=== PATIENT | male | born 1995 | race Caucasian/White ===

== ENCOUNTER 2017-04-06 00:26 | Emergency (ER) | payer BC ==
[~2017-04-06] VITALS: Ht 167.6 cm; Wt 64.1 kg
[2017-04-06 00:29] VITALS: TEMP 36.5; Ht 167.6 cm; Wt 64.1 kg
[2017-04-06] MEDS ORDERED: XYLOCAINE 1%/SOD BICARB 20 ML VIAL INFIL ONE (01:00)
[2017-04-06 01:20] VITALS: BP 95/65; PULSE 87; O2SAT 96
--- NOTE | 2017-04-06 06:09 | EMERGENCY ROOM VISIT NOTE ---
ED Visit Note First contact with patient: 00:36 CHIEF COMPLAINT: Right elbow laceration HISTORY OF PRESENT ILLNESS: This 22-year-old male patient presents to the emergency department after cutting the right elbow after falling tonight. Evidently the patient has been drinking alcohol, slipped, and cut himself on a piece of glass. The bleeding has stopped. Denies weakness or numbness of the hand or wrist. The patient rates the pain as dull and 1/10. The patient denies any other injuries. The patient's Tetanus shot is reportedly up to date. REVIEW OF SYSTEMS: A 6 system review of systems was completed with positives and pertinent negatives listed in the HPI. ALLERGIES: No known allergies MEDICATIONS: No chronic medications PMH: Otherwise healthy SOCIAL HISTORY: Drinks alcohol almost locally PHYSICAL EXAM: Vital Signs: Reviewed Nurse's notes, vital signs stable. GENERAL : White male, in no acute distress, well-developed, well-nourished. SKIN: There is a curvilinear 3.5 cm long laceration on the dorsal aspect of the right elbow just lateral to the olecranon. The edges gape apart with traction. There is no foreign material in the wound and it looks clean. There is no significant bleeding. No deep structures such as tendons, bones, or significant blood vessels are seen in the base of the wound. Normal strength and movement of the elbow, wrist, and hand of the right upper extremity. No neurologic deficit noted. Capillary refill less than 2 seconds. Normal sensation to light and sharp touch. EMERGENCY DEPARTMENT COURSE: I examined the patient. Verbal consent was obtained to perform the procedure. Using sterile technique the wound was cleansed with Betadine. The area was sterilely draped. 4 ml of 1% buffered lidocaine was used to anesthetize the laceration on the right elbow. Once the patient was anesthetized, the wound was copiously irrigated under pressure with sterile saline. The wound was explored and was as described above. The laceration was repaired using 9 olga with the wound edges being well approximated. The patient tolerated the procedure well. Hemostasis was achieved. The area was cleaned with sterile saline and dressed with bacitracin ointment and bandage. The patient was discharged home in good condition. Current/Historical Medications No Active Prescriptions or Reported Meds Allergies Coded Allergies: No Known Allergies (Unverified , 04/06/17) Vital Signs Date Time Temp Pulse Resp B/P (MAP) Pulse Ox O2 Delivery O2 Flow Rate FiO2 04/06/17 01:20 87 16 95/65 96 04/06/17 00:29 36.5 137 20 105/54 97 Room Air Departure Information Impression Primary Impression: Laceration of right elbow Dispostion Home / Self-Care Condition GOOD Prescriptions No Active Prescriptions or Reported Meds Forms HOME CARE DOCUMENTATION FORM, IMPORTANT VISIT INFORMATION Patient Instructions My [facility], ED Laceration All, ED Scar Tips to Minimize Additional Instructions Keep wound clean and dry. Do not allow any crusting or dried blood to accumulate on olga. If this occurs, use a mild soap/water on a Q-tip to clean the wound. Do not use Peroxide to clean the wound as this can delay healing Use an antibiotic ointment like Bacitracin for 3-4 days, then let wound dry. You may bathe and shower as normal, but DO NOT SOAK the wound. Staple removal in about 10-12 days with S, your Family Doctor, or in the ER. Return sooner for any signs of infection, increasing redness, swelling, or drainage.
== END 2017-04-06 01:25 | disposition home or self-care (01) ==
LOC: C.EDB 00:28
DX: S51.011A Laceration without foreign body of right elbow, initial encounter (principal); W01.110A Fall on same level from slipping, tripping and stumbling with subsequent striking against sharp glass, initial encounter; Z72.89 Other problems related to lifestyle